=== PATIENT | female | born 1955 | race Two or more races ===

== ENCOUNTER 2022-05-04 05:40 | Emergency (ER) | payer MEDICARE ==
[~2022-05-04] VITALS: Ht 152.4 cm; Wt 79.4 kg
[~2022-05-04 05:40] MED LIST: ALBU90OI6 INH; AMOX875 PO; MECL12.5 PO; METO25ER PO; Mucinex600 MG PO; PROM25 PO; Prednisone20 MG PO; Zithromax250 MG PO
[2022-05-04] MEDS ORDERED: OXYC5 PO (08:22)
[2022-05-04] MEDS ORDERED: CEPH500 PO (08:22)
[2022-05-04] MEDS ORDERED: Bactrim Ds Tab1 EACH PO (08:22)
[2022-05-04] MEDS ORDERED: ONDA4 PO (08:22)
== END 2022-05-04 08:45 | disposition home or self-care (01) ==
LOC: ER 05:40
DX: M79.671 Pain in right foot (principal); M79.89 Other specified soft tissue disorders; L53.9 Erythematous condition, unspecified; Z87.891 Personal history of nicotine dependence; Z98.84 Bariatric surgery status
CPT/HCPCS: 73630; 96372; 99283-25; A9270; J1170

== ENCOUNTER → 2022-12-20 | Outpatient (CLI) | payer MEDICARE ==
[~2022-12-20] MED LIST changes: +Bactrim Ds Tab1 EACH PO; +CEPH500 PO; +ONDA4 PO; +OXYC5 PO
== END ==
LOC: PLD 13:00 → LAB SHORT 13:00
DX: R93.89 Abnormal findings on diagnostic imaging of other specified body structures (principal); N95.0 Postmenopausal bleeding
CPT/HCPCS: 88305

== ENCOUNTER 2023-10-23 08:30 | Day surgery (SDC) | payer MEDICARE ==
[~2023-10-23 08:30] MED LIST changes: +AMLO5 PO; +Budeprion Xl300 MG; +NAPROXEN500 MG PO; +Naltrexone HCl50 MG PO
== END 2023-10-30 22:49 | disposition home or self-care (01) ==
LOC: MOI MAM 08:30
DX: R92.0 Mammographic microcalcification found on diagnostic imaging of breast (principal)
CPT/HCPCS: 19081; 88305; A4648

== ENCOUNTER → 2024-01-06 | Outpatient (CLI) | payer MEDICARE ==
[2024-01-06 15:36] LABS: BASOPHILS ABSOLUTE AUTO 0.07 K/mm3 (0.00-0.23); BASOPHILS PERCENT AUTO 1 % (0-2); EOSINOPHILS PERCENT AUTO 2 % (0-6); Hematocrit 37.5 % (33.0-51.0); Hemoglobin 11.8 g/dL (11.5-16.0); IMMATURE GRAN ABSOLUTE AUTO 0.01 K/mm3 (0.00-0.10); IMMATURE GRAN PERCENT AUTO 0 % (0-1); LYMPHOCYTES ABSOLUTE AUTO 2.79 K/mm3 (0.84-5.20); LYMPHOCYTES PERCENT AUTO 32 % (21-46); MONOCYTES PERCENT AUTO 8 % (4-13); Mean Corpuscular HGB 26.9 pg (26.0-34.0); Mean Corpuscular HGB Conc 31.5 g/dL (31.5-36.5); Mean Corpuscular Volume 86 fL (80-100); Mean Platelet Volume 10.3 fL (9.1-12.4); NEUTROPHILS ABSOLUTE AUTO 4.92 K/mm3 (1.96-9.15); NEUTROPHILS PERCENT AUTO 57 % (41-73); Platelet Count 330 K/mm3 (150-400); RDW Coefficient Variation 14.8 % (11.7-14.2); RDW Standard Deviation 46.4 fL (35.1-46.3); Red Blood Cell Count 4.38 M/mm3 (3.80-5.20); White Blood Cell Count 8.69 K/mm3 (4.00-11.30)
[2024-01-06 15:39] LABS: Bun/Creatinine Ratio 18.1 (12.0-20.0); Calcium, Blood 9.3 mg/dL (8.5-10.1); Creatinine, Blood 0.94 mg/dL (0.40-1.00); Potassium, Blood 3.9 mmol/L (3.5-5.5)
== END | disposition home or self-care (01) ==
LOC: LAB 15:32 → LAB SHORT 15:32
PROVIDERS: Physician Assistant Medical
DX: R42 Dizziness and giddiness (principal)
CPT/HCPCS: 80048; 85025

== ENCOUNTER → 2024-08-21 | Outpatient (CLI) | payer OTHER ==
[2024-08-21 10:28] LABS: Source, Urine Clean Catch
[2024-08-21 11:58] LABS: Appearance, Urine Hazy (Clear); Bilirubin, Urine Neg (Neg); Blood, Urine 2+ (Neg); Color, Urine Yellow (P-Yellow); Glucose Qualitative, Urine Neg (Neg); Ketones, Urine Neg (Neg); Leukocyte Esterase, Urine 2+ (Neg); Nitrite, Urine Neg (Neg); Protein, Urine 1+ (Neg); Urobilinogen, Urine NORM (Normal)
[2024-08-21 12:06] LABS: Bacteria Mod /hpf; Squamous Epithelial Cells Few /hpf (Few)
== END | disposition home or self-care (01) ==
LOC: LAB SHORT 10:26 → LAB 10:26
PROVIDERS: Obstetrics & Gynecology
DX: N81.89 Other female genital prolapse (principal)
CPT/HCPCS: 81001; 87077; 87086; 87186

== ENCOUNTER → 2024-08-25 | Outpatient (CLI) | payer OTHER ==
[2024-08-25 14:53] LABS: BASOPHILS ABSOLUTE AUTO 0.04 K/mm3 (0.00-0.23); BASOPHILS PERCENT AUTO 1 % (0-2); EOSINOPHILS ABSOLUTE AUTO 0.13 K/mm3 (0.00-0.68); EOSINOPHILS PERCENT AUTO 2 % (0-6); Hematocrit 38.2 % (33.0-51.0); Hemoglobin 12.1 g/dL (11.5-16.0); IMMATURE GRAN ABSOLUTE AUTO 0.01 K/mm3 (0.00-0.10); IMMATURE GRAN PERCENT AUTO 0 % (0-1); LYMPHOCYTES ABSOLUTE AUTO 2.19 K/mm3 (0.84-5.20); LYMPHOCYTES PERCENT AUTO 30 % (21-46); MONOCYTES ABSOLUTE AUTO 0.51 K/mm3 (0.16-1.47); MONOCYTES PERCENT AUTO 7 % (4-13); Mean Corpuscular HGB 27.1 pg (26.0-34.0); Mean Corpuscular HGB Conc 31.7 g/dL (31.5-36.5); Mean Corpuscular Volume 86 fL (80-100); Mean Platelet Volume 11.4 fL (9.1-12.4); NEUTROPHILS ABSOLUTE AUTO 4.32 K/mm3 (1.96-9.15); NEUTROPHILS PERCENT AUTO 60 % (41-73); Platelet Count 382 K/mm3 (150-400); RDW Standard Deviation 43.3 fL (35.1-46.3); Red Blood Cell Count 4.47 M/mm3 (3.80-5.20)
[2024-08-25 15:36] LABS: Anion Gap 11 mmol/L (3-11); Blood Urea Nitrogen 26 mg/dL (8-24); Bun/Creatinine Ratio 30.9 (12.0-20.0); CHOL/HDL RATIO 2.5; CO2, Blood 24 mmol/L (21-32); Chloride, Blood 111 mmol/L (98-108); Cholesterol 236 mg/dL (50-200); Creatinine, Blood 0.84 mg/dL (0.40-1.00); Glomerular Filtration Rate 74 (60-); Glucose, Blood 100 mg/dL (70-99); HDL Cholesterol 93 mg/dL (>39); LDL/HDL RATIO 1.3; Low Density Lipoprotein Chol 124 mg/dL (0-110); Sodium, Blood 142 mmol/L (136-145); Triglycerides 96 mg/dL (30-160); Very Low Density Lipoprot Chol 19 mg/dL (6-32)
== END | disposition home or self-care (01) ==
LOC: LAB 11:08 → LAB SHORT 11:08
PROVIDERS: Nurse Practitioner Family
DX: E78.5 Hyperlipidemia, unspecified (principal); R73.03 Prediabetes
CPT/HCPCS: 36415; 80048; 80061; 83036; 85025

== ENCOUNTER 2024-11-05 06:01 | Day surgery (SDC) | payer OTHER ==
--- NOTE | 2024-11-04 20:58 | NUR ---
PT RETURNED PHARMACIST'S CALL AFTER PHARMACIST HAD LEFT. PT STATED THE MESSAGE RELAYED THE NEED FOR HER HOME MEDICATION LIST. TOOK THE INFORMATION OVER THE PHONE FROM THE PATIENT AND ENTERED IT IN THE COMPUTER WELL WHEN SHE TOOK THE MEDICATION LAST.
[2024-11-05] VITALS (14 sets, daily range): BP systolic 110–162; BP diastolic 54–72
[~2024-11-05] VITALS: Ht 149.9 cm; Wt 69.3 kg
[~2024-11-05 06:01] MED LIST changes: +ATOR20 PO; -Budeprion Xl300 MG; +Budeprion Xl300 MG PO; +CALCIUM 500 MG1 EAC2 PO; +COLLAGEN PO; +GABA100 PO; +GNP PAIN RLF P1 EACH PO; +MERIBIN5 MG PO; +MULVITA PO; +TUMERIC PO; +VITAMIN B-12 PO; +Vitamin D1000 UNI1 PO
[2024-11-05] MEDS ORDERED: Lactated Ringer's 1,000 ML IV SCH ×2 (06:10→10:55)
[2024-11-05] MEDS ORDERED: CeFAZolin Sodium 2,000 MG in NS 100 ML IV SCH (06:10)
--- NOTE | 2024-11-05 06:40 | NUR ---
Ambulatory in Day Surgery History, Chart, Medications and Allergies reviewed before start of procedure. Pre-Op teaching done. Pt verbalizes understanding. Patient States Post-Procedure ride home has been arranged.
[2024-11-05] MEDS ORDERED: CeFAZolin Sodium 2,000 MG VIAL ONE (06:46)
[2024-11-05] MEDS ORDERED: FentaNYL Citrate 50 MCG/ML 2 ML Injection ONE (07:03)
[2024-11-05] MEDS ORDERED: Lidocaine HCl 2% 20 ML MDV ONE (07:03)
[2024-11-05] MEDS ORDERED: Dexamethasone Sod Phos 10 MG/ML 1ML VIAL ONE (07:04)
[2024-11-05] MEDS ORDERED: Rocuronium Bromide 10 MG/ML 5ML Injection IV ONE ×2 (07:04→09:26)
[2024-11-05] MEDS ORDERED: Ondansetron HCl 2 MG / ML 2ML Vial ONE (07:04)
[2024-11-05] MEDS ORDERED: propofoL 20 ML IV ONE (07:04)
[2024-11-05] MEDS ORDERED: Bupivacaine 0.5% HCl 5 MG/ML 30MLVIAL ONE (07:16)
[2024-11-05] MEDS ORDERED: EpiNEPhrine 1 MG/1 ML 1ML Vial ONE (07:19)
[2024-11-05] MEDS ORDERED: Scopolamine Hydrobromide Patch TD SCH (07:20)
[2024-11-05] MEDS ORDERED: propofoL 60 ML IV ONE (07:26)
[2024-11-05] MEDS ORDERED: Ketamine HCl 100 MG / ML 5ML Vial ONE (08:01)
[2024-11-05] MEDS ORDERED: Glycopyrrolate 0.2 MG/ML 5ML VIAL ONE (08:26)
[2024-11-05] MEDS ORDERED: Sugammadex Sodium 200 MG/2ML SDV (100 MG/ML) ONE (10:41)
[2024-11-05] MEDS ORDERED: Simethicone 80 MG Chew PO PRN (10:55)
[2024-11-05] MEDS ORDERED: Metoclopramide HCl 5MG / ML 2ML Vial IV PRN (10:55)
[2024-11-05] MEDS ORDERED: Acetaminophen 500 MG Tab PO PRN (10:55)
[2024-11-05] MEDS ORDERED: HYDROmorphone HCl/Pf 1MG SYR IV PRN (10:55)
[2024-11-05] MEDS ORDERED: Metoclopramide HCl 10 MG Tab PO PRN (11:00)
[2024-11-05] MEDS ORDERED: Ondansetron HCl 2 MG / ML 2ML Vial IV PRN (11:00)
[2024-11-05] MEDS ORDERED: Ondansetron 4 MG TAB PO PRN (11:00)
[2024-11-05] MEDS ORDERED: FLU VACC TS2024-25(6MOS UP)/PF 45 MCG/0.5 ML SYRINGE IM SCH (11:00)
[2024-11-05] MEDS ORDERED: Naloxone HCl 0.4MG / ML 1ML Vial IV PRN (11:00)
[2024-11-05] MEDS ORDERED: OxyCODONE HCL 5 MG TAB PO PRN (11:00)
[2024-11-05] MEDS ORDERED: DiphenhydrAMINE HCL 25 MG Cap PO PRN (11:00)
--- NOTE | 2024-11-05 12:04 | NUR ---
ARRIVAL TO UNIT AFTER RECEIVING REPORT FROM GRANULATING BLENDER, PATIENT TRANSFERRED TO UNIT AT APPROX 1130. PATIENT LETHARGIC - EASILY AROUSABLE WITH VERBAL STIMULI. TRANSFERRED FROM RLANCASTER TO BED WITH SLIDER SHEET. S/P ROBOTIC TOTAL HYSTER WITH ADHESION REMOVAL AND PROLAPSE REPAIR - X5 LAP SITES WITH WOUND GLUE. C/D/I. MINIMAL VAGINAL BLEEDING - SAM PAD PLACED. DENIES PAIN. VSS. CURRENTLY ON 3L VIA NC, SATs >90%. SHALLOW RR. NEWSOME CATHETER PLACED IN OR - PATIENT TO WI HOME WITH NEWSOME. DRAINING YELLOW URINE TO GRAVITY. PATIENT IS CURRENTLY SLEEPING. CALL LIGHT IN REACH.
[2024-11-05] MEDS ORDERED: Gabapentin 100 MG Cap PO SCH (14:00)
[2024-11-05] MEDS ORDERED: Phenazopyridine HCl 100 MG Tab PO PRN (15:20)
--- NOTE | 2024-11-05 17:40 | NUR ---
SHIFT SUMMARY NO ACUTE CHANGES SINCE PREVIOUS NOTES. PATIENT REMAINS LETHARGIC POST OP - MOSTLY SLEPT ALL AFTERNOON. EASILY AROUSABLE WITH VERBAL STIMULI. VSS. CURRENTLY ON 2L VIA NC, SATs >90%. RR EVEN, UNLABORED. S/P LAP TOTAL HYSTER WITH X5 SITES - C/D/I. MANAGING PAIN PER EMAR AND WITH KPAD. MINIMAL DRAINAGE ON SAM PAD. TOLERATING SMALL SIPS OF WATER AND A FEW SNACKS - ENCOURAGING INCREASED PO INTAKE. LR INFUSING PER EMAR. NEWSOME CATHETER IN PLACE DRAINING LIGHT YELLOW URINE TO GRAVITY. DECLINING AMBULATION THROUGHOUT AFTERNOON DUE TO LETHARGY. CALL LIGHT IN REACH. WILL CONTINUE TO MONITOR AND REPORT TO ONCOMING RN.
[2024-11-06 03:53] VITALS: BP 125/54
--- NOTE | 2024-11-06 04:17 | NUR ---
SHIFT SUMMARY POD 1-LAP HYSTER W/LYSIS OF ADHESIONS. 5 LAP SITES ACROSS ABD W/TISSUE ADHESIVE, INTACT, DRY, NO DRAINAGE NOTED. PT REPORTS 04/27 ABD DISCOMFORT, MEDICATED 2x W/10MG OXYCODONE & PT ABLE TO REST WELL. DENIES N/V. TOLERATING PO. SAM PAD W/SCANT TO SM AMOUNT BLOOD, CHANGED 2x THIS SHIFT. NEWSOME PATENT & DRAINING CLEAR YELLOW URINE. AOX4. VSS. PT UP AMBULATED HALLS THIS AM W/ASSISTANCE & FWW. CALL LIGHT IN REACH.
[2024-11-06 07:32] VITALS: BP 124/62
[2024-11-06] MEDS ORDERED: buPROPion HCL 150 MG TAB.SR.12H PO SCH (09:00)
[2024-11-06] MEDS ORDERED: Cholecalciferol 1000 Unit Tablet (=25MCG) PO SCH (09:00)
[2024-11-06] MEDS ORDERED: Calcium 500 MG/Vit D 200 Units Tab PO SCH (09:00)
[2024-11-06] MEDS ORDERED: Biotin 5 MG Cap PO SCH (09:00)
[2024-11-06] MEDS ORDERED: Atorvastatin 10 MG Tab PO SCH (09:00)
[2024-11-06] MEDS ORDERED: ACET500 PO (09:18)
--- NOTE | 2024-11-06 11:00 | NUR ---
DISCHARGE SUMMARY PT D/C HOME AFTER LAP HYSTER WITH NEWSOME CATH IN PLACE. LEG BAG PLACED ON PT'S R LEG PRIOR TO DISCHARGE AND EDUCATION PROVIDED TO PT ON USE OF CATHETER, CATH CARE, HOW TO EMPTY, AND CONCERNS TO WATCH OUT FOR. ABD PAD SECURED TO MID ABD IS C/D/I. QUESTIONS ANSWERED PRIOR TO DISCHARGE. PT HAS F/U WITH SURGEON ALREADY. PT ESCORTED TO LOBBY VIA WC AND SISTER TO GIVE RIDE HOME.
== END 2024-11-06 11:05 | disposition home or self-care (01) ==
LOC: SURS 06:01 → ORSCMMR 06:01 → ORD 07:30 → SURS 11:22 → ORSCMMR 11-06 11:05
PROVIDERS: Obstetrics & Gynecology
PROC: 0UT9FZZ Resection of Uterus, Via Natural or Artificial Opening With Percutaneous Endoscopic Assistance (ICD-10-PCS; principal; 2024-11-05 07:30)
PROC: 0UT6FZZ Resection of Left Fallopian Tube, Via Natural or Artificial Opening With Percutaneous Endoscopic Assistance (ICD-10-PCS; principal; 2024-11-05 07:30)
PROC: 0DN84ZZ Release Small Intestine, Percutaneous Endoscopic Approach (ICD-10-PCS; principal; 2024-11-05 07:30)
PROC: 0UT1FZZ Resection of Left Ovary, Via Natural or Artificial Opening With Percutaneous Endoscopic Assistance (ICD-10-PCS; principal; 2024-11-05 07:30)
PROC: 0JQC0ZZ Repair Pelvic Region Subcutaneous Tissue and Fascia, Open Approach (ICD-10-PCS; principal; 2024-11-05 07:30)
DX: N81.89 Other female genital prolapse (principal); N95.0 Postmenopausal bleeding; D25.9 Leiomyoma of uterus, unspecified; N84.0 Polyp of corpus uteri; N73.6 Female pelvic peritoneal adhesions (postinfective); N83.8 Other noninflammatory disorders of ovary, fallopian tube and broad ligament; I10 Essential (primary) hypertension; G47.33 Obstructive sleep apnea (adult) (pediatric); Z79.899 Other long term (current) drug therapy
CPT/HCPCS: 86850; 86900; 86901; 88307; A9270; J0171; J0690; J1100; J1171; J2405; J2704; J3010; J7120

== ENCOUNTER 2025-10-18 07:58 | Day surgery (SDC) | payer OTHER ==
[~2025-10-18] VITALS: Ht 149.9 cm; Wt 76.0 kg
[~2025-10-18 07:58] MED LIST changes: +ACET500 PO; +NS 500 ML IV ONE
[2025-10-18] MEDS ORDERED: CeFAZolin Sodium 2,000 MG VIAL ONE (08:33)
[2025-10-18] MEDS ORDERED: NS 500 ML IV ONE (08:52)
--- NOTE | 2025-10-18 09:15 | NUR ---
10/18/25 0915 Jacqueline Ba LOCAL INJECTION BILAT HAND AT 0913. RIGHT HAND 7ML LEFT HAND 7ML
[2025-10-18 10:06] VITALS: BP 165/76
== END 2025-10-18 10:21 | disposition home or self-care (01) ==
LOC: ORSCSDS 07:58
DX: G56.03 Carpal tunnel syndrome, bilateral upper limbs (principal); I10 Essential (primary) hypertension; Z87.891 Personal history of nicotine dependence; Z79.899 Other long term (current) drug therapy; G47.33 Obstructive sleep apnea (adult) (pediatric)
CPT/HCPCS: 88304; 88313; J0690; J2704; J7040